=== PATIENT | female | born 1995 | race Hispanic/Latino ===

== ENCOUNTER 2022-11-02 17:27 | Emergency (ER) | payer MEDICAID, OTHER ==
[~2022-11-02] VITALS: Ht 157.5 cm; Wt 81.2 kg
[2022-11-02 17:28] VITALS: BP 121/75
== END 2022-11-02 18:45 | disposition home or self-care (01) ==
LOC: EDH 17:27
DX: S93.402A Sprain of unspecified ligament of left ankle, initial encounter (principal); X50.1XXA Overexertion from prolonged static or awkward postures, initial encounter; Y93.89 Activity, other specified; Y92.89 Other specified places as the place of occurrence of the external cause; Y99.8 Other external cause status
CPT/HCPCS: 73600

== ENCOUNTER 2023-08-23 21:03 | Emergency (ER) | payer OTHER ==
[~2023-08-23] VITALS: Ht 157.5 cm; Wt 81.6 kg
[2023-08-24] MEDS ORDERED: CYCL-309 PO (01:54)
[2023-08-24 02:27] LABS: APPEARANCE,URINE CLEAR (CLEAR); BILIRUBIN,URINE NEGATIVE (NEGATIVE); COLOR,URINE LIGHT-YELLOW (YELLOW); GLUCOSE, URINE (UA) NEGATIVE (NEGATIVE); KETONES,URINE NEGATIVE (NEGATIVE); LEUKOCYTE ESTERASE ,URINE 75 Leu/uL (NEGATIVE); NITRATE,URINE NEGATIVE (NEGATIVE); OCCULT BLOOD,URINE LARGE (NEGATIVE); PH,URINE 5.5 (5.0-8.0); PROTEIN,URINE NEGATIVE (NEGATIVE); UROBILINOGEN,URINE 0.2 mg/dL (0.2-1.0)
[2023-08-24 02:28] LABS: ADD UA MICROSCOPIC YES
[2023-08-24 02:30] LABS: BACTERIA,URINE MANY /HPF (None Seen); MUCUS,URINE RARE LPF (None Seen); RBC,URINE TNTC /HPF (0-1); SQUAMOUS EPITHELIAL CELL,UR FEW /HPF (0-2); UNCLASSIFIED CRYSTAL 2 /HPF (None Seen)
[2023-08-24] MEDS: HYDROCODONE/ACETAMINOPHEN 5/325 MG TAB PO ONE (02:30)
[2023-08-24] MEDS: CYCLOBENZAPRINE HCL 10 MG TABLET PO ONE (02:30)
[2023-08-24 02:31] LABS: HCG,QUALITATIVE URINE NEGATIVE (NEGATIVE)
[2023-08-24 02:35] VITALS: BP 130/72; PULSE 106; RESP 21; O2SAT 100
== END 2023-08-24 02:37 | disposition home or self-care (01) ==
LOC: EDH 21:03
DX: S39.012A Strain of muscle, fascia and tendon of lower back, initial encounter (principal); V89.2XXA Person injured in unspecified motor-vehicle accident, traffic, initial encounter; Y93.89 Activity, other specified; Y92.89 Other specified places as the place of occurrence of the external cause; Y99.8 Other external cause status
CPT/HCPCS: 81001; 81025; 87088